=== PATIENT | female | born 1965 ===

== ENCOUNTER → 2018-11-21 | Outpatient (CLI) | payer OTHER ==
[~2018-11-21] MED LIST: ALBU8HFA IH; DIPH25CA85 PO; EPIN0.3P3 IM; IPRA3AMP24 NEB; PRED20 PO
[2018-11-21 08:43] VITALS: BP 128/68
== END | disposition home or self-care (01) ==
LOC: SRCNTR 08:18 → EDSTATUS 08:30
PROVIDERS: ATTEND Internal Medicine
DX: J45.909 Unspecified asthma, uncomplicated (principal)
CPT/HCPCS: G0463